=== PATIENT | male | born 1995 | race African-American/Black ===

== ENCOUNTER 2020-10-30 20:21 | Emergency (ER) | payer OTHER ==
[~2020-10-30] VITALS: Ht 170.2 cm; Wt 64.4 kg
[2020-10-30 20:33] VITALS: BP 107/42
[2020-10-30] MEDS ORDERED: IBUPROFEN 600600 M1 PO (21:05)
[2020-10-30] MEDS ORDERED: TIZANIDINE4 MG/1 TA1 PO (21:05)
== END 2020-10-30 21:18 | disposition home or self-care (01) ==
LOC: ER 20:21
DX: S16.1XXA Strain of muscle, fascia and tendon at neck level, initial encounter (principal); F17.210 Nicotine dependence, cigarettes, uncomplicated; V49.9XXA Car occupant (driver) (passenger) injured in unspecified traffic accident, initial encounter; Y93.89 Activity, other specified; Y92.89 Other specified places as the place of occurrence of the external cause; Y99.8 Other external cause status